=== PATIENT | female | born 1950 | race Caucasian/White ===

== ENCOUNTER → 2018-03-03 | Outpatient (CLI) | payer OTHER, BC ==
[~2018-03-03] VITALS: Ht 167.6 cm; Wt 70.3 kg
[~2018-03-03] MED LIST: CELEXA20 MG PO; COZAAR 50 MG TA50 M2 PO; IRBESARTAN150 MG PO; PLAVIX 75 MG TA75 M1 PO; PREVACID30 M2 PO; PRISTIQ50 M1 PO; ROSUVASTATIN CA20 MG PO; VITAMIN D1000 UNIT PO; VITAMINC500 PO; XANAX1 MG PO; ZOFRAN ODT4 MG PO
--- NOTE | ~2018-03-03 | P ---
[facility] [place] [address] PROCEDURE REPORT Name: CONSUELO ARIAS Room #: REG [facility].#: [id number] Admission: 03/03/18 Attend Phys: Selwyn Breaux MD Discharge: Date of : 48 Report #: [id number] THIS REPORT FOR: //name// CC: Kb Garcia MD OUTPATIENT UPPER ENDOSCOPY BRIEF HISTORY: The patient is a 67-year-old woman known to me with history of oculopharyngeal muscular dystrophy. She is having more difficulty with swallowing and subsists on primarily pureed foods. She has had a dilation of her esophagus in the past and she felt that was helpful. She presents today for repeat dilation due to her dysphagia. She also describes some vague epigastric pain. PREOPERATIVE DIAGNOSIS: Dysphagia. POSTOPERATIVE DIAGNOSIS: Dysphagia. MEDICATIONS: Deep sedation with propofol per anesthesia. SPECIMEN: None. ESTIMATED BLOOD LOSS: None. PROCEDURE: EGD and Gongora dilation. FINDINGS: Prior to propofol sedation, procedure of upper endoscopy was discussed. Upper endoscopy and dilation was reviewed with the patient as well as potential risks and its complications. She indicates she understands and desires to proceed. DESCRIPTION OF PROCEDURE: With the patient in left lateral decubitus position, the Olympus video endoscope was inserted in the cervical esophagus under direct vision without difficulty. Examination of this organ through its entire length revealed normal esophageal mucosa. No strictures or masses or inflammatory changes were seen. The squamocolumnar junction was unremarkable. A hiatus hernia was not seen. Scope was advanced in the stomach, was examined on end view as well as retroflexed views. She had normal gastric mucosa on end view as well as retroflexed views. No masses were seen in the cardia of the stomach. The pylorus was normal, duodenal bulb was normal, postbulbar duodenal sweep down to the second portion was normal. At that point, the scope was slowly withdrawn and careful circumferential views confirmed the above findings. Subsequently, she was dilated with passage of a 60-Italian Gongora dilator. This [facility] [address] [place] [address] PROCEDURE REPORT Name: CONSUELO ARIAS DICKSON Room #: REG [facility].#: [id number] Admission: 03/03/18 Attend Phys: Selwyn Breaux MD Discharge: Date of : 48 Report #: [id number] dilator passed without any difficulty whatsoever. CONDITION OF THE PATIENT UPON DISCHARGE: Following the procedure, the patient was drowsy. She will be discharged home when fully ambulatory. INSTRUCTIONS TO THE PATIENT AND FAMILY AT THE TIME OF DISCHARGE: Unfortunately, the patient with oculopharyngeal muscular dystrophy. She believes she has had benefit from dilation in the past and we will see how she does following dilation today. If she does have a good response to dilation, this can be repeated on an as needed basis. However, it is unlikely this is going to solve her problems with swallowing. We also again discussed the possibility of reinsertion of a PEG tube. She indicated today that she is not yet ready to replace the PEG tube. As far as her pain and discomfort, I do not see any difficulties. I have advised to continue her Prevacid Solutab. However, return to see me in followup in the office in about 4 months or so. <ELECTRONICALLY SIGNED> By: Selwyn rBeaux MD 03/04/18 1126 0932 20 Selwyn Breaux MD /nt
== END | disposition home or self-care (01) ==
LOC: GI 07:07
DX: R13.10 Dysphagia, unspecified (principal); F32.9 Major depressive disorder, single episode, unspecified; F41.9 Anxiety disorder, unspecified; F17.210 Nicotine dependence, cigarettes, uncomplicated; I10 Essential (primary) hypertension; E78.5 Hyperlipidemia, unspecified; I73.9 Peripheral vascular disease, unspecified; Z98.890 Other specified postprocedural states; Z90.49 Acquired absence of other specified parts of digestive tract; K21.9 Gastro-esophageal reflux disease without esophagitis; G71.0 Muscular dystrophy; M81.0 Age-related osteoporosis without current pathological fracture; Z90.710 Acquired absence of both cervix and uterus
CPT/HCPCS: 62110; 62900

== ENCOUNTER → 2018-04-11 | Outpatient (CLI) | payer OTHER, BC | LOC: RAD 12:00 | DX: J98.11 Atelectasis (principal); R91.8 Other nonspecific abnormal finding of lung field ==

== ENCOUNTER → 2018-04-13 | Outpatient (CLI) | payer OTHER, BC | LOC: CAT 10:59 | DX: J90 Pleural effusion, not elsewhere classified (principal); J98.11 Atelectasis; R91.8 Other nonspecific abnormal finding of lung field; R07.9 Chest pain, unspecified ==

== ENCOUNTER 2019-09-28 20:23 | Inpatient (IN) | payer OTHER ==
[~2019-09-28] VITALS: Ht 167.6 cm; Wt 58.5 kg
[~2019-09-28 20:23] MED LIST changes: +ALBUTEROL2.5 MG/31 INH; +AUGMENTIN 875-1 EACH PO; +NORVASC5 MG PO; +OXYBUTYNIN 5 MG5 M2 PO
[2019-09-28 20:31] VITALS: BP 130/53
[2019-09-28] MEDS ORDERED: CELEXA 20 MG TA20 MG PO (21:47)
[2019-09-28] MEDS ORDERED: NEURONTIN100 MG PO (21:47)
[2019-09-28] MEDS ORDERED: HYDROCODONE-AP1 EACH PO (21:49)
[2019-09-28] MEDS ORDERED: PERCOCET 10-321 EAC1 PO (21:51)
[2019-09-28] MEDS ORDERED: DURAGESIC1 EAC3 TRANSDERM (21:52)
[2019-09-28 21:58] LABS: BE(vivo) 3.5 mmol/L (-2 to +3); HCO3 30.7 mmol/L (22.0-26.0); PO2 63.9 mmHg (80.0-100.0); pH 7.349 (7.360-7.450)
--- NOTE | 2019-09-28 22:07 | NUR ---
PHYSICIAN AT BEDSIDE DISCUSSING PLAN OF CARE WITH RT, FAMILY, HOPSICE NURSE, PATIENT AND STAFF NURSE.
[2019-09-28 23:01] LABS: HEMATOCRIT 44.2 % (37.0-47.0); MCH 29.3 pg (26.0-34.0); MCHC 31.6 g/dL (28.0-37.0); MCV 92.7 fL (80.0-100.0); PLATELET COUNT 253 thou/uL (150-400); RBC 4.77 mil/uL (4.20-5.00); WBC 23.9 thou/uL (4.0-11.0)
[2019-09-28 23:08] LABS: CALCIUM 8.9 mg/dL (8.5-10.1); CREATININE 0.6 mg/dL (0.6-1.0); POTASSIUM 4.3 mmol/L (3.5-5.1)
[2019-09-28 23:14] LABS: ALBUMIN 3.3 g/dL (3.4-5.0); TOTAL BILIRUBIN 0.5 mg/dL (<0.1-1.0); TOTAL PROTEIN 7.9 g/dL (6.4-8.2)
[2019-09-28 23:38] LABS: LARGE PLATELETS FEW; PLATELET ESTIMATE NORMAL
--- NOTE | 2019-09-29 00:21 | NUR ---
PATIENT DESATTING TO 83%, REPOSITIONED. NON-REBREATHER TURNED ALL THE WAY UP. PHYSICIAN NOTIFIED. RT NOTIFIED OF NEED FOR BIPAP. O2 SAT 902% AT THIS TIME
[2019-09-29 01:02] VITALS: BP 95/47
[2019-09-29 01:33] VITALS: BP 135/56
[2019-09-29] MEDS ORDERED: PREDNISONE 5 MG5 M1 PO (03:30)
[2019-09-29 04:18] VITALS: BP 133/61
--- NOTE | 2019-09-29 06:57 | NUR ---
PATIENT IS ALERT BUT LATHARGIC. PATIENT IS Q2TURN. PATIENT IS ON BIPAP. STATS IMPROVING. PATIENT HAS REDDNESS TO GROIN AND COCCYX. PATIENT HAS ULCER TO RIGHT ANKEL. PATIENT LIVES AT HOME WITH HOSPICE. PATIENT IS RESTING COMFORTABLY IN BED. WCM.
[2019-09-29 07:50] VITALS: BP 140/58
--- NOTE | 2019-09-29 09:55 | NUR ---
Nutrition: pt from home with hospice. Usual diet pureed per nsg. Has PEG but not recently used. Currently on BIPAP with ? aspiration pneumonia. ST To eval today. If desired and within POC could utilize PEG tube for nutrition if pt remains NPO. REC Jevity 1.5 at 45 mL/hr goal rate. Pt likely refeeding syndrome risk due to suspected poor oral intake at home. REC slow advance of rate/monitor electrolytes.
--- NOTE | 2019-09-29 10:28 | NUR ---
chart review. unable to speak with pt, getting btx via cpap/bipap. pt stated " am i dieing, is it in head,?"/kimberly. she pointed to her brain. active listing and support during visit. cm called spoke with magali " in the shop call our daughter at house"/magali. called adam daughter [phone]. intro to cm and dcp. " [facility] [place] since 2018, she will come home and resume hospice. has home o2 and they brought out o2 for 10L. has peg tub, eat yogurt with chocolate syrup. take medication crushed with yogurt. has adjustable bed but not a hospital bed. was able independent prior to admit. will come up later after weather stops and roads are better. speech has been diff before because of muscle dystrophy"/daughter adam. will cont following as needed for dc needs.
--- NOTE | 2019-09-29 12:50 | NUR ---
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 RECOMMEDNATIONS; 1-THERAHONEY TO WOUND BED, COVER WITH A BORDER FOAM, CHANGE M/W/F PRN 2-LOW AIR LOSS PUMP 3-PRAFO BOOTS DISCUSSED WITH STAFF
[2019-09-29 16:15] VITALS: BP 123/55
[2019-09-29 19:16] VITALS: BP 143/59
[2019-09-30 04:11] LABS: CALCIUM 8.8 mg/dL (8.5-10.1); CREATININE 0.6 mg/dL (0.6-1.0); POTASSIUM 3.2 mmol/L (3.5-5.1)
--- NOTE | 2019-09-30 04:38 | NUR ---
PATIENT IS ALERT TO SELF AND SITUATION. PATIENTS PAIN IS TREATED WITH MEDICATION. PATIENT WAS ABLE TO TOLERATE BIPAP FOR A COUPLE HOURS OTHERWISE PATIENT IS ON 5LNC. PATIENT IS INCONTIENT. PATIENTT CAN TURN SELF. PATIENT HAS PEG TUBE NOT TUBE FEEDING AT THIS TIME. PATIENT IS RESTING COMFORTABLY IN BED. [facility].
[2019-09-30 04:49] VITALS: BP 109/48
[2019-09-30 04:51] LABS: HEMATOCRIT 37.8 % (37.0-47.0); MCH 29.5 pg (26.0-34.0); MCHC 31.9 g/dL (28.0-37.0); MCV 92.5 fL (80.0-100.0); RBC 4.08 mil/uL (4.20-5.00); RDW 15.9 % (10.5-14.5); WBC 19.3 thou/uL (4.0-11.0)
[2019-09-30 07:45] VITALS: BP 139/52
--- NOTE | 2019-09-30 09:17 | NUR ---
CONSULT [id number] COMPLETED BY THIS TIRE REBUILDER.
[2019-09-30 15:24] VITALS: BP 143/56
--- NOTE | 2019-09-30 16:56 | NUR ---
ASSUMED CARE OF PT AT 0700. PT ALERT AND ORIENTED, IN NO ACUTE DISTRESS. MAINTAIN SPO2 ON 5L NC. UP TO CHAIR FOR MOST OF DAY. EVALUATED BY SPEECH THERAPY - HOME DIET RESUMED. SEEN BY PULMONARY. CALLS OUT APPROPRIATELY. SOMEWHAT RESTLESS AT TIMES. WILL CONT TO MONITOR. PT MAKING PROGRESS TOWARD POC GOALS.
[2019-09-30 20:08] VITALS: BP 150/60
[2019-10-01 01:18] LABS: ABSOLUTE NEUTROPHILS 18.7 thou/uL (1.4-8.2); BASOPHILS 0.4 % (0.0-2.0); HEMOGLOBIN 12.1 gm/dL (12.0-15.0); LYMPHOCYTES 2.9 % (24.0-44.0); MCV 90.6 fL (80.0-100.0); MONOCYTES 1.8 % (1.0-8.0); PLATELET COUNT 223 thou/uL (150-400); POLYS 94.9 % (36.0-66.0); RBC 4.19 mil/uL (4.20-5.00); RDW 15.6 % (10.5-14.5); WBC 19.7 thou/uL (4.0-11.0)
--- NOTE | 2019-10-01 01:43 | NUR ---
patient is alert and oriented. patient is up times one. patients lbm was the 19th. patient is incontient at times. patient is on 5l nc. patient is bipap hs but refused tonight. patient started home diet today. poor intake. patients pain is controlled with pain medication. patient is resting comfortably in bed. wcm. patient is progressing to goals.
[2019-10-01 03:49] LABS: URINE BILIRUBIN NEGATIVE (Negative); URINE BLOOD 3+ (Negative); URINE CLARITY SL CLOUDY; URINE COLOR YELLOW; URINE GLUCOSE-RANDOM* NEGATIVE (Negative); URINE KETONES 2+ (Negative); URINE LEUKOCYTES-REFLEX NEGATIVE (Negative); URINE NITRITE-REFLEX NEGATIVE (Negative); URINE PROTEIN (DIPSTICK) TRACE (Negative)
[2019-10-01 04:00] LABS: BACTERIA-REFLEX 1-9 Few /HPF (None Seen); CASTS None Seen /LPF (None Seen); CRYSTALS None Seen /LPF (None Seen); MUCUS 0-3 Light strn/LPF (None Seen); SQUAMOUS 0-3 Few /LPF (0-3); TRANSITIONAL EPITHEL CELL 0-3 Few /LPF (None Seen); URINE RBC 0-2 Rare /HPF (0-2); URINE WBC-REFLEX 0-5 Rare /HPF (0-5)
[2019-10-01 04:50] LABS: BASOPHILS 0.2 % (0.0-2.0); HEMATOCRIT 39.6 % (37.0-47.0); HEMOGLOBIN 13.1 gm/dL (12.0-15.0); LYMPHOCYTES 3.2 % (24.0-44.0); MCH 30.3 pg (26.0-34.0); MCHC 33.1 g/dL (28.0-37.0); MCV 91.4 fL (80.0-100.0); MONOCYTES 1.9 % (1.0-8.0); PLATELET COUNT 239 thou/uL (150-400); POLYS 94.7 % (36.0-66.0); RBC 4.34 mil/uL (4.20-5.00); RDW 15.8 % (10.5-14.5)
[2019-10-01 05:15] LABS: ALBUMIN 2.4 g/dL (3.4-5.0); CALCIUM 8.6 mg/dL (8.5-10.1); CREATININE 0.5 mg/dL (0.6-1.0); MAGNESIUM 1.5 mg/dL (1.8-2.4); TOTAL BILIRUBIN 0.8 mg/dL (<0.1-1.0); TOTAL PROTEIN 6.8 g/dL (6.4-8.2)
[2019-10-01 05:25] LABS: POTASSIUM 2.5 mmol/L (3.5-5.1)
[2019-10-01 05:43] LABS: BE(vivo) -0.9 mmol/L (-2 to +3); HCO3 20.8 mmol/L (22.0-26.0); pH 7.505 (7.360-7.450); sO2 92.1 % (92.0-98.0)
[2019-10-01 05:44] LABS: PO2 55.9 mmHg (80.0-100.0)
[2019-10-01 07:33] VITALS: BP 158/69
[2019-10-01 15:06] VITALS: BP 143/73
--- NOTE | 2019-10-01 19:40 | NUR ---
1130 Pt K 2.9, dr. jenna kaplan, stated he will put order in. 1829 jenna prasad about K level, stated again he will put order in. messaged passed on to PM NURSE.
[2019-10-01 19:45] VITALS: BP 145/61
--- NOTE | 2019-10-01 19:50 | NUR ---
1430 PT TAKEN DOWN FOR ct. Pt tolerated Ct okay. Back on floor, denies any needs. Call light in reach. pt progressing towards plan of care
[2019-10-02 04:20] VITALS: BP 159/64
[2019-10-02 06:09] LABS: HEMATOCRIT 39.2 % (37.0-47.0); HEMOGLOBIN 12.7 gm/dL (12.0-15.0); MCH 29.3 pg (26.0-34.0); MCHC 32.3 g/dL (28.0-37.0); MCV 90.5 fL (80.0-100.0); RBC 4.33 mil/uL (4.20-5.00); RDW 15.7 % (10.5-14.5); WBC 13.5 thou/uL (4.0-11.0)
[2019-10-02 06:20] LABS: CALCIUM 8.2 mg/dL (8.5-10.1); CREATININE 0.4 mg/dL (0.6-1.0); MAGNESIUM 2.4 mg/dL (1.8-2.4)
[2019-10-02 06:32] LABS: POTASSIUM 2.6 mmol/L (3.5-5.1)
[2019-10-02 07:35] VITALS: BP 155/68
--- NOTE | 2019-10-02 07:40 | NUR ---
PT MAKING SLOW PROGRESS TOWARDS GOALS. PT UP WITH SBA TO BSC. NOTED SLIGHT INCREASE IN WOB WITH ACTIVITY. O2 AT 4L PER NC THROUGHOUT THE NIGHT. REFUSED TO WEAR BIPAP DESPITE ENCOURAGEMENT. PT FREQUENTLY SPITTING FLUID FROM HER MOUTH. PT SIPPING SMALL AMOUNTS OF WATER AND SPITTING SOME OF IT UP. PT DID MAKE THE COMMENT "SEEMS LIKE ALOT OF WHAT I SWALLOW JUST COMES BACK UP."
--- NOTE | 2019-10-02 12:07 | NUR ---
WOUND CARE F/U ASSESSED R ANKLE WOUND W/ IRRIGATION DISTRICT MANAGERCHIN FOWLER. LESS SLOUGH IN WOUND, SLIGHT ERYTHEMA NOTED, PT ALERT, COOPERATIVE, MILD PAIN W/ WOUND CARE BUT DECLINED PAIN MED, PRAFO BOOTS NOT ON PT, ENCOURAGED TO WEAR BOOTS AT ALL TIMES WHEN IN BED, PT WAS UNAWARE BOOTS WERE IN ROOM RECOMMENDATIONS CONT CURRENT TX, THERAHONEY TO WOUND BED 3X WEEK AND PRN, PRESSURE RELIEF, PRAFO BOOTS WHEN IN BED AT ALL TIMES, FLOAT HEELS, CONT LOW AIR LOSS PUMP TO BED IRRIGATION DISTRICT MANAGER AWARE
[2019-10-02] MEDS ORDERED: MSL20MG/ML PO (13:05)
[2019-10-02] MEDS ORDERED: AUGMENTIN 875-1 EACH PO (13:05)
[2019-10-02] MEDS ORDERED: LORAZEPAM 22 MG/1 ML SUBLING (13:05)
--- NOTE | 2019-10-02 13:15 | NUR ---
Pt states feeling she wants to go back on hospice, she feels "tired" and weak. she states she doesnt mind being on the same hospice care she was before she was admitted to the hospital. Dr. west and charge nurse made aware. will continue to monitor pt
--- NOTE | 2019-10-02 14:46 | NUR ---
PATIENT DISCHARGING TO HOME WITH [facility]. CALL PLACED TO [facility] TO NOTIFY. SPOKE WITH SABINE ONEIL. DISCHARGE HOSPICE ORDERS FAXED TO [facility].
--- NOTE | 2019-10-02 14:52 | NUR ---
DISCHARGE NOTE: JUNE reviewed chart and spoke with nursing and attending physician. Pt is medically stable for discharge home today. Pt will re-admit on service with [facility]. JUNE met with pt at bedside to discuss discharge plan. Pt is aware and in agreement with discharge plan. Pt states her family should be able to provide transportation home. JUNE spoke with pt's dtr, Jeanine, via phone to provide update and discuss discharge plan. Per Jeanine, pt's spouse will need to sign admission ppwk prior to pt returning home. JUNE spoke with Tia in admissions at [facility], who states that pt revoked on Wednesday, they have not been able to submit the bill to Medicare, and may not be able to readmit pt on service for a couple of days. JUNE spoke with Denise, executive directive at [facility], who will look into matter and return call to SW. JUNE updated pt's nurse. JUNE is following to assist as needed with discharge planning.
[2019-10-02 16:04] VITALS: BP 152/61
[2019-10-02 19:21] VITALS: BP 156/70
[2019-10-03 05:07] VITALS: BP 165/73
[2019-10-03 07:56] LABS: MAGNESIUM 1.6 mg/dL (1.8-2.4)
[2019-10-03 07:57] VITALS: BP 136/85
[2019-10-03 07:59] LABS: POTASSIUM 2.8 mmol/L (3.5-5.1)
--- NOTE | 2019-10-03 08:03 | NUR ---
PT MAKING SLOW PROGRESS TOWARDS GOALS. PT UP TO BSC WITH ONLY STAND BY ASSISTANCE. GAIT IS STABLE. X1 DOSE OF ATIVAN LAST NIGHT TO HELP PT RELAX. PT REPORTED SHE HAD A GOOD RESULT FROM THAT DOSE AND WAS ABLE TO REST/SLEEP FOR A FEW HOURS.
[2019-10-03 13:39] VITALS: BP 136/85
[2019-10-03 14:17] VITALS: BP 136/85
--- NOTE | 2019-10-03 14:24 | NUR ---
Assumed care approx. 0700 this AM. Two oxygen tanks recieved to take home. Pts arrived to take patient home to hospice care who is supposed to meet pt in home at 1600 today. Discharge materials signed by patients . Picture of wound taken. IV and tele dc'd. Pt left unit by wheelchair with belongings and home o2 tanks at 1410.
--- NOTE | 2019-10-03 14:36 | NUR ---
DISCHARGE NOTE: Pt is medically stable for discharge home today. Pt to readmit on hospice services with [facility]. Pt's family provided transportation home. SW was not notified of time of discharge. SW spoke with Sirena in intake at hospice to notify of pt's discharge. Hospice to contact family to arrange admission. No additional SW needs identified at this time, but is available to assist should needs arise.
== END 2019-10-03 14:14 | disposition hospice, home (50) | DRG 871 ==
LOC: ER 20:23 → 3W 09-29 00:06 → EROBS 09-29 00:06 → 3W 09-29 01:29 → ENTRNSPT 10-03 14:02 → EDTRNSPTSTS 10-03 14:04 → 3W 10-03 14:14
PROVIDERS: Emergency Medicine; Nurse Practitioner; Nurse Practitioner Family; ADMIT Internal Medicine
PROC: 5A09357 Assistance with Respiratory Ventilation, Less than 24 Consecutive Hours, Continuous Positive Airway Pressure (ICD-10-PCS; principal; 2019-09-29)
PROC: 5A09357 Assistance with Respiratory Ventilation, Less than 24 Consecutive Hours, Continuous Positive Airway Pressure (ICD-10-PCS; 2019-09-30)
DX: A41.9 Sepsis, unspecified organism (principal); J69.0 Pneumonitis due to inhalation of food and vomit; J96.21 Acute and chronic respiratory failure with hypoxia; J96.22 Acute and chronic respiratory failure with hypercapnia; C34.90 Malignant neoplasm of unspecified part of unspecified bronchus or lung; C79.31 Secondary malignant neoplasm of brain; Z51.5 Encounter for palliative care; G71.09 Other specified muscular dystrophies; K22.2 Esophageal obstruction; J44.9 Chronic obstructive pulmonary disease, unspecified; K21.9 Gastro-esophageal reflux disease without esophagitis; M81.0 Age-related osteoporosis without current pathological fracture; I73.9 Peripheral vascular disease, unspecified; M45.9 Ankylosing spondylitis of unspecified sites in spine; F32.9 Major depressive disorder, single episode, unspecified; F41.9 Anxiety disorder, unspecified; Z90.710 Acquired absence of both cervix and uterus; Z87.891 Personal history of nicotine dependence; Z88.8 Allergy status to other drugs, medicaments and biological substances; Z90.49 Acquired absence of other specified parts of digestive tract; Z79.01 Long term (current) use of anticoagulants; Z91.041 Radiographic dye allergy status; Z95.820 Peripheral vascular angioplasty status with implants and grafts; Z79.891 Long term (current) use of opiate analgesic; Z79.899 Other long term (current) drug therapy; Z28.21 Immunization not carried out because of patient refusal
CPT/HCPCS: 10879